=== PATIENT | male | born 1980 | race Caucasian/White ===

== ENCOUNTER 2021-12-05 16:22 | Inpatient (IN) ==
[2021-12-05] MEDS ORDERED: Acetaminophen 325 MG TABLET PO PRN (18:31)
[2021-12-05] MEDS ORDERED: Naloxone 0.4 MG/ML INJ IVP PRN (18:31)
[2021-12-05] MEDS ORDERED: Ondansetron 4 MG/2 ML VIAL IVP PRN (18:31)
[2021-12-05] MEDS ORDERED: Vancomycin 500 MG in 0.9 % Sodium Chloride Mini Bag 100 ML IVPB ONE (19:00)
[2021-12-05 19:41] LABS: INR 1.4; Prothrombin Time 15.7 Seconds (9.4-12.1)
[2021-12-05] MEDS ORDERED: QUEtiapine Fumarate 100 MG TABLET PO SCH (21:30)
[2021-12-05] MEDS: Nicotine 21 MG PATCH.TD24 TD SCH (21:40)
[2021-12-05] MEDS: Clindamycin 900 MG/50 ML 900 MG/50 ML IV.SOLN IVPB SCH (21:57)
[2021-12-05] MEDS ORDERED: Clindamycin 900 MG/50 ML 900 MG/50 ML IV.SOLN IVPB SCH (22:00)
[2021-12-06] MEDS: Piperacillin/Tazobactam 3.375 GM in 0.9 % Sodium Chloride Mini Bag 100 ML IVPB SCH ×3 (00:07→18:13)
[2021-12-06 05:12] LABS: Hematocrit 40.8 % (37.5-50.1); Hemoglobin 13.6 g/dL (12.9-16.9); Mean Corpuscular HGB Conc 33.3 g/dL (31.6-35.5); Mean Corpuscular Hemoglobin 30.3 pg (28.0-33.3); Mean Corpuscular Volume 90.9 fL (83.0-100.0); Mean Platelet Volume 10.5 fL (9.4-12.4); Platelet Count 311 K/mcL (140-400); Red Blood Count 4.49 M/mcL (4.19-5.50); White Blood Count 14.3 K/mcL (4.3-11.1)
[2021-12-06 05:30] LABS: BUN/Creatinine Ratio 24 (6-26); Blood Urea Nitrogen 16 mg/dL (6-20); Calcium 9.4 mg/dL (8.6-10.3); Carbon Dioxide 28 mEq/L (23-29); Chloride 100 mEq/L (98-107); Glucose 106 mg/dL (70-105); Magnesium 1.5 mg/dL (1.6-2.6); Osmolality,Calculated 286 (280-300); Potassium 3.5 mEq/L (3.5-5.1); Sodium 137 mEq/L (136-145); eGFR For African Americans > 60 (> 60); eGFR For Non-African Americans > 60 (> 60)
[2021-12-06 05:45] LABS: Eosinophils # 0.9 K/mcL (0.0-0.6); Lymphocytes # 3.2 K/mcL (0.6-4.6); Monocytes # 0.6 K/mcL (0.0-1.3); Neutrophils # 9.7 K/mcL (1.6-8.9)
[2021-12-06 05:46] LABS: Platelet Estimate Normal (Normal)
[2021-12-06] MEDS: Vancomycin 1,500 MG/265 ML IV.SOLN IVPB SCH ×2 (05:58→18:14)
[2021-12-06] MEDS: Clindamycin 900 MG/50 ML 900 MG/50 ML IV.SOLN IVPB SCH ×3 (08:03→20:45)
[2021-12-06] MEDS ORDERED: *HR* Midazolam HCl 2 MG/2 ML VIAL ONE (08:08)
[2021-12-06] MEDS ORDERED: *HR* Propofol 200 MG/20 ML VIAL IVP ONE ×2 (08:08→09:26)
[2021-12-06] MEDS ORDERED: *HR* FentaNYL (PF) 100 MCG/2 ML VIAL ONE ×2 (08:08→09:12)
[2021-12-06] MEDS ORDERED: Lidocaine HCL 4 ML Topical Solution (Laryng-O-Jet Kit Sterile Pak) TP ONE (08:11)
[2021-12-06] MEDS ORDERED: *HR* Rocuronium Bromide 50 MG/5 ML VIAL ONE (08:11)
[2021-12-06] MEDS ORDERED: Lidocaine -MPF 2% 2 ML VIAL ONE (08:11)
[2021-12-06] MEDS ORDERED: *HR* Succinylcholine 200 MG/10 ML VIAL IVP ONE (08:11)
[2021-12-06] MEDS ORDERED: Ondansetron 4 MG/2 ML VIAL ONE (08:11)
[2021-12-06] MEDS ORDERED: EPHEDrine 50 MG/ML VIAL ONE (09:23)
[2021-12-06] MEDS ORDERED: Acetaminophen IV 1,000 MG/100 ML BAG IVPB ONE (09:33)
[2021-12-06] MEDS: *HR* HYDROmorphone PF 0.5 MG/0.5 ML SYRINGE IVP PRN ×5 (10:08→10:45)
[2021-12-06] MEDS ORDERED: Ketorolac 30 MG/ML VIAL IVP ONE (10:28)
[2021-12-06] MEDS: Nicotine 21 MG PATCH.TD24 TD SCH (12:25)
[2021-12-06] MEDS: QUEtiapine Fumarate 100 MG TABLET PO SCH (20:14)
[2021-12-06] MEDS: Gabapentin 400 MG CAPSULE PO SCH (20:45)
[2021-12-07] MEDS: Piperacillin/Tazobactam 3.375 GM in 0.9 % Sodium Chloride Mini Bag 100 ML IVPB SCH ×3 (00:29→15:26)
[2021-12-07 05:38] LABS: Basophils % 0.3 %; Eosinophils # 0.1 K/mcL (0.0-0.6); Eosinophils % 0.6 %; Hematocrit 32.3 % (37.5-50.1); Immature Granulocytes % 1.4 % (0-4); Lymphocytes # 2.6 K/mcL (0.6-4.6); Lymphocytes % 21.6 %; Mean Corpuscular HGB Conc 32.5 g/dL (31.6-35.5); Mean Corpuscular Volume 92.3 fL (83.0-100.0); Mean Platelet Volume 10.7 fL (9.4-12.4); Monocytes # 0.8 K/mcL (0.0-1.3); Monocytes % 6.7 %; Neutrophils # 8.2 K/mcL (1.6-8.9); Platelet Count 228 K/mcL (140-400); Red Cell Distribution Width 13.9 % (11.5-14.5); Segmented Neutrophils % 69.4 %; White Blood Count 11.9 K/mcL (4.3-11.1)
[2021-12-07 05:39] LABS: Hemoglobin 10.5 g/dL (12.9-16.9)
[2021-12-07 05:56] LABS: BUN/Creatinine Ratio 25 (6-26); Blood Urea Nitrogen 17 mg/dL (6-20); Calcium 8.8 mg/dL (8.6-10.3); Carbon Dioxide 28 mEq/L (23-29); Chloride 103 mEq/L (98-107); Glucose 107 mg/dL (70-105); Osmolality,Calculated 286 (280-300); Potassium 3.2 mEq/L (3.5-5.1); Sodium 137 mEq/L (136-145); eGFR For African Americans > 60 (> 60); eGFR For Non-African Americans > 60 (> 60)
[2021-12-07] MEDS: Clindamycin 900 MG/50 ML 900 MG/50 ML IV.SOLN IVPB SCH ×3 (06:06→20:10)
[2021-12-07] MEDS: Vancomycin 1,500 MG/265 ML IV.SOLN IVPB SCH (06:32)
[2021-12-07] MEDS: Nicotine 21 MG PATCH.TD24 TD SCH (08:04)
[2021-12-07] MEDS: Gabapentin 400 MG CAPSULE PO SCH ×3 (08:05→20:10)
[2021-12-07] MEDS: Vancomycin 1,250 MG/262.5 ML IV.SOLN IVPB SCH (15:26)
[2021-12-07] MEDS: QUEtiapine Fumarate 100 MG TABLET PO SCH (20:09)
[2021-12-08] MEDS: Piperacillin/Tazobactam 3.375 GM in 0.9 % Sodium Chloride Mini Bag 100 ML IVPB SCH ×2 (00:01→08:26)
[2021-12-08] MEDS: Vancomycin 1,250 MG/262.5 ML IV.SOLN IVPB SCH ×2 (00:01→06:04)
[2021-12-08 03:03] VITALS: BP 112/68; PULSE 68; TEMP 98.2; O2SAT 92
[2021-12-08 04:30] LABS: Basophils # 0.1 K/mcL (0.0-0.2); Basophils % 0.7 %; Eosinophils # 0.3 K/mcL (0.0-0.6); Eosinophils % 3.2 %; Hematocrit 31.4 % (37.5-50.1); Hemoglobin 10.3 g/dL (12.9-16.9); Immature Granulocytes % 1.3 % (0-4); Lymphocytes # 2.6 K/mcL (0.6-4.6); Lymphocytes % 28.6 %; Mean Corpuscular HGB Conc 32.8 g/dL (31.6-35.5); Mean Corpuscular Hemoglobin 30.3 pg (28.0-33.3); Mean Corpuscular Volume 92.4 fL (83.0-100.0); Mean Platelet Volume 10.7 fL (9.4-12.4); Monocytes # 0.6 K/mcL (0.0-1.3); Monocytes % 6.4 %; Neutrophils # 5.5 K/mcL (1.6-8.9); Platelet Count 251 K/mcL (140-400); Segmented Neutrophils % 59.8 %; White Blood Count 9.2 K/mcL (4.3-11.1)
[2021-12-08 04:45] LABS: BUN/Creatinine Ratio 23 (6-26); Blood Urea Nitrogen 25 mg/dL (6-20); Calcium 8.6 mg/dL (8.6-10.3); Carbon Dioxide 27 mEq/L (23-29); Chloride 106 mEq/L (98-107); Glucose 98 mg/dL (70-105); Osmolality,Calculated 294 (280-300); Potassium 3.7 mEq/L (3.5-5.1); Sodium 140 mEq/L (136-145); eGFR For African Americans > 60 (> 60); eGFR For Non-African Americans > 60 (> 60)
[2021-12-08] MEDS: Clindamycin 900 MG/50 ML 900 MG/50 ML IV.SOLN IVPB SCH ×2 (06:04→12:43)
[2021-12-08] MEDS: Gabapentin 400 MG CAPSULE PO SCH (08:27)
[2021-12-08] MEDS: Nicotine 21 MG PATCH.TD24 TD SCH (08:27)
== END 2021-12-08 13:30 | disposition home or self-care (01) | DRG 317 ==
LOC: 3NENU → SUATTDRO 18:48
PROVIDERS: ADMIT Pharmacist; ATTEND Hospitalist

== ENCOUNTER 2022-05-06 20:42 | Inpatient (IN) ==
[2022-05-07] MEDS ORDERED: Naloxone 0.4 MG/ML INJ IVP PRN (02:19)
[2022-05-07] MEDS ORDERED: Artificial Tears SOLN 15 ML BOTTLE BOTH EYES PRN (02:19)
[2022-05-07] MEDS ORDERED: *HR* Dextrose 50 % in Water (Syg) 50 ML SYRINGE ONE ×2 (02:31→08:10)
[2022-05-07] MEDS ORDERED: *HR* Heparin 5,000 UNIT/ML VIAL IVP PRN ×2 (02:33)
[2022-05-07] MEDS ORDERED: Heparin 25,000UNIT/250ML 1/2NS 25,000 UNIT/250 ML IV.SOLN IVC SCH (02:45)
[2022-05-07 02:52] LABS: ABG Base Excess -11 mEq/L (-2 to 3); ABG HCO3 19 mEq/L (21-27); ABG Oxygen Saturation 89 % (95-98); ABG PCO2 64 mmHg (35-45); ABG PH 7.09 pH Units (7.32-7.45); ABG PO2 77 mmHg (85-104); ABG TCO2 21 mEq/L (20-26); Blood Gas VT 500 cc
[2022-05-07] MEDS: *HR* Dextrose 50 % in Water (Syg) 50 ML SYRINGE ONE ×2 (02:58→03:01)
[2022-05-07] MEDS: Chlorhexidine Rinse 15 ML MOUTHWASH MM SCH ×2 (03:00→08:29)
[2022-05-07] MEDS: FentaNYL (PF) 1,000 MCG/100 ML IV.SOLN IVC SCH ×2 (03:01→11:00)
[2022-05-07] MEDS: Cisatracurium 200 MG in 0.9 % Sodium Chloride 80 ML IVC SCH ×3 (03:02→14:02)
[2022-05-07] MEDS: Piperacillin/Tazobactam 3.375 GM in 0.9 % Sodium Chloride Mini Bag 100 ML IVPB SCH ×2 (03:02→11:31)
[2022-05-07] MEDS: Artificial Tears SOLN 15 ML BOTTLE BOTH EYES SCH ×3 (03:03→11:31)
[2022-05-07 03:42] LABS: Eosinophils % 9.1 %; Hemoglobin 11.7 g/dL (12.9-16.9); Lymphocytes # 0.1 K/mcL (0.6-4.6); Lymphocytes % 45.5 %; Mean Corpuscular HGB Conc 31.6 g/dL (31.6-35.5); Mean Corpuscular Hemoglobin 29.9 pg (28.0-33.3); Mean Corpuscular Volume 94.6 fL (83.0-100.0); Mean Platelet Volume 11.8 fL (9.4-12.4); Neutrophils # 0.1 K/mcL (1.6-8.9); Platelet Count 155 K/mcL (140-400); Red Blood Count 3.91 M/mcL (4.19-5.50); Red Cell Distribution Width 14.4 % (11.5-14.5); Segmented Neutrophils % 45.4 %
[2022-05-07 03:47] LABS: White Blood Count 0.1 K/mcL (4.3-11.1)
[2022-05-07 03:53] LABS: Prothrombin Time 76.1 Seconds (9.4-12.1)
[2022-05-07 03:54] LABS: INR 6.9
[2022-05-07] MEDS ORDERED: Vancomycin 1,750 MG/517.5 ML IV.SOLN IVPB ONE (04:00)
[2022-05-07 04:08] LABS: Alanine Aminotransferase 47 Units/L (7-52); Albumin 2.8 g/dL (3.5-5.7); Alkaline Phosphatase 59 Units/L (34-104); Aspartate Amino Transferase 104 Units/L (13-39); BUN/Creatinine Ratio 25 (6-26); Bilirubin,Total 0.3 mg/dL (0.3-1.0); Blood Urea Nitrogen 59 mg/dL (6-20); Calcium 7.2 mg/dL (8.6-10.3); Carbon Dioxide 18 mEq/L (23-29); Chloride 103 mEq/L (98-107); Globulin 2.7 g/dL (2.4-3.5); Glucose 136 mg/dL (70-105); Magnesium 1.8 mg/dL (1.6-2.6); Osmolality,Calculated 303 (280-300); Phosphorous 6.4 mg/dL (2.7-4.5); Potassium 3.5 mEq/L (3.5-5.1); Sodium 137 mEq/L (136-145); Total Protein 5.5 g/dL (6.4-8.9); Troponin I < 0.03 ng/mL (< 0.04)
[2022-05-07] MEDS ORDERED: Iopamidol - 370 500 ML MLS IVP ONE (04:14)
[2022-05-07 04:29] LABS: Adenovirus Not Detected (Not Detect); Bordetella Pertussis Not Detected (Not Detect); Chlamydophila pneumoniae Not Detected (Not Detect); Coronavirus 229E Not Detected (Not Detect); Coronavirus HKU1 Not Detected (Not Detect); Coronavirus NL63 Not Detected (Not Detect); Coronavirus OC43 Not Detected (Not Detect); Human Metapneumovirus Not Detected (Not Detect); Human Rhinovirus/Enterovirus Not Detected (Not Detect); Influenza A Subtype 2009 H1 Not Detected (Not Detect); Influenza B Not Detected (Not Detect); Mycoplasma pneumoniae Not Detected (Not Detect); Parainfluenza Virus 1 Not Detected (Not Detect); Parainfluenza Virus 2 Not Detected (Not Detect); Parainfluenza Virus 3 Not Detected (Not Detect); Parainfluenza Virus 4 Not Detected (Not Detect); Respiratory Syncytial Virus Not Detected (Not Detect); SARS-CoV-2 Not Detected (Not Detect)
[2022-05-07 04:29] LABS: ABG Base Excess -9 mEq/L (-2 to 3); ABG HCO3 19 mEq/L (21-27); ABG Oxygen Saturation 86 % (95-98); ABG PCO2 51 mmHg (35-45); ABG PH 7.18 pH Units (7.32-7.45); ABG PO2 65 mmHg (85-104); ABG TCO2 21 mEq/L (20-26); Blood Gas VT 600 cc
[2022-05-07 04:32] LABS: Burr Cells 1+ (Not Present); Platelet Estimate Normal (Normal); Poikilocytosis 1+ (Not Present)
[2022-05-07] MEDS ORDERED: *HR* Acetylcysteine 20% 30 ML VIAL PO ONE (04:45)
[2022-05-07] MEDS ORDERED: 0.9 % Sodium Chloride 1,000 ML ONE ×2 (04:49→10:01)
[2022-05-07] MEDS ORDERED: Pantoprazole 40 MG VIAL IVP SCH (06:00)
[2022-05-07] MEDS ORDERED: D5% in 0.45% NACL 1,000 ML IVC SCH (06:15)
[2022-05-07 06:35] LABS: ABG Base Excess -12 mEq/L (-2 to 3); ABG HCO3 18 mEq/L (21-27); ABG Oxygen Saturation 82 % (95-98); ABG PCO2 54 mmHg (35-45); ABG PH 7.12 pH Units (7.32-7.45); ABG PO2 62 mmHg (85-104); ABG TCO2 19 mEq/L (20-26); Blood Gas VT 600 cc
[2022-05-07 06:42] LABS: Heparin anti-factor XA UFH 0.17 IU/mL (0.30-0.70)
[2022-05-07 06:44] LABS: INR 1.3; Prothrombin Time 14.9 Seconds (9.4-12.1)
[2022-05-07] MEDS ORDERED: Dextrose 50 % in Water (Vial) 50 ML in D5% in 0.2% NACL 500 ML IVC SCH (07:45)
[2022-05-07] MEDS: Norepinephrine 4 MG/254 ML IV.SOLN IVC SCH ×4 (08:28→12:09)
[2022-05-07] MEDS ORDERED: D10% in Water 500 ML IVC SCH (08:45)
[2022-05-07] MEDS ORDERED: Dextrose Gel 15 GM/37.5 ML TUBE PO PRN ×2 (08:48)
[2022-05-07] MEDS ORDERED: D5% in Water 1,000 ML IVC PRN (08:48)
[2022-05-07] MEDS ORDERED: Potassium Chloride 40 MEQ/200 ML BAG IVPB PRN (08:50)
[2022-05-07] MEDS ORDERED: Calcium Gluconate 1gm/50mL 1 GM/50 ML BAG IVPB PRN (08:50)
[2022-05-07] MEDS ORDERED: Potassium Phosphate 44 MEQ in 0.9 % Sodium Chloride 250 ML IVPB PRN (08:50)
[2022-05-07] MEDS ORDERED: Vasopressin 40 UNIT in D5% in Water 100 ML IVC SCH (09:00)
[2022-05-07] MEDS ORDERED: Lidocaine -MPF 1% 5 ML AMPUL INFILT ONE (09:41)
[2022-05-07] MEDS: *HR* Dextrose 50 % in Water (Syg) 50 ML SYRINGE IVP PRN ×2 (09:45→11:44)
[2022-05-07] MEDS ORDERED: Albumin 25% 25gram/100mL 25 GM/100 ML IV.SOLN IVPB ONE (10:00)
[2022-05-07 10:22] LABS: VBG Ionized Calcium 0.93 mmol/L (1.15-1.35)
[2022-05-07] MEDS ORDERED: Sodium Bicarbonate 150 MEQ in D5% in Water 1,000 ML IVC SCH (10:45)
[2022-05-07] MEDS ORDERED: Micafungin 100 MG in 0.9 % Sodium Chloride Mini Bag 100 ML IVPB SCH (10:45)
[2022-05-07] MEDS ORDERED: levoFLOXacin 750 MG/150 ML 750 MG/150 ML BAG IVPB SCH (11:00)
[2022-05-07] MEDS: Ipratropium/Albuterol Neb 3 ML IH SCH ×2 (11:05→11:33)
[2022-05-07 13:13] VITALS: TEMP 103.1
[2022-05-07] MEDS ORDERED: Acetylcysteine 10% 2 ML INHSOL IH SCH (15:00)
[2022-05-07 15:24] VITALS: BP 98/59; PULSE 116; O2SAT 84
[2022-05-07 19:47] LABS: Estimated Average Glucose 114 mg/dl; Hemoglobin A1C 5.6 %
[2022-05-08] MEDS ORDERED: Vancomycin 1,750 MG/517.5 ML IV.SOLN IVPB SCH (04:00)
== END 2022-05-07 15:44 | disposition short-term general hospital (02) | DRG 720 ==
LOC: ICNU
PROVIDERS: ADMIT Internal Medicine; ATTEND Internal Medicine